=== PATIENT | male | born 1990 ===

== ENCOUNTER 2018-01-11 17:39 | Emergency (ER) | payer BC ==
[2018-01-11] MEDS ORDERED: Tetan/Diph/Pertus SYR(Tdap)* 0.5 ML SYR(BOOSTRIX) use SYR IM ONE (18:09)
[2018-01-11] MEDS ORDERED: Cephalexin CAP* 500 MG PO ONE (18:09)
--- NOTE | 2018-01-11 18:09 | UC ---
Hand/Wrist HPI - HPI Summary HPI Summary: The patient is a 27-year-old male who sustained a puncture wound to his left distal forearm today about noon with a waldemar nail while he was demolishing a barn. He is unsure of his last tetanus shot. He is left-handed. About 2 hours after the incident he started having some swelling around the puncture site. Now it hurts when he makes a fist. It is no redness. He has no fever. There is no numbness or tingling of his hand. - History Of Current Complaint Chief Complaint: UCUpperExtremity Stated Complaint: PUNCTURE WOUND Time Seen by Provider: 01/11/18 18:00 Hx Obtained From: Patient Onset/Duration: Sudden Onset, Lasting Hours Severity Initially: Moderate Severity Currently: Mild Pain Intensity: 4 Pain Scale Used: 0-10 Numeric Character Of Pain: Dull, Aching Aggravating Factor(s): Movement, Lifting Alleviating Factor(s): Rest Associated Signs And Symptoms: Positive: Swelling Related History: Dominant Hand Left Hands: 1 - PW with surrounding mild swelling - Allergies/Home Medications Allergies/Adverse Reactions: Allergies Allergy/AdvReac Type Severity Reaction Status Date / Time No Known Allergies Allergy Verified 01/11/18 17:50 PMH/Surg Hx/FS Hx/Imm Hx Previously Healthy: Yes - Surgical History Surgical History: None - Family History Known Family History: Positive: Hypertension - Social History Alcohol Use: None Substance Use Type: None Smoking Status (MU): Never Smoked Tobacco - Immunization History Most Recent Tetanus Shot: unknown Review of Systems Constitutional: Negative Skin: Negative Eyes: Negative ENT: Negative Respiratory: Negative Cardiovascular: Negative Gastrointestinal: Negative Genitourinary: Negative Motor: Negative Neurovascular: Negative Musculoskeletal: Myalgia Neurological: Negative Psychological: Negative Is Patient Immunocompromised?: No All Other Systems Reviewed And Are Negative: Yes Physical Exam Triage Information Reviewed: Yes Appearance: Well-Appearing, No Pain Distress, Well-Nourished Vital Signs: Initial Vital Signs Temp 98.7 F 01/11/18 17:46 Pulse 61 01/11/18 17:46 Resp 18 01/11/18 17:46 BP 116/81 01/11/18 17:46 Pulse Ox 100 01/11/18 17:46 Vital Signs Reviewed: Yes Eyes: Positive: Conjunctiva Clear ENT: Positive: Hearing grossly normal. Negative: Nasal congestion, Nasal drainage, Trismus, Muffled voice, Hoarse voice Neck: Positive: Supple, Nontender, No Lymphadenopathy Respiratory: Positive: Lungs clear, Normal breath sounds, No respiratory distress, No accessory muscle use Cardiovascular: Positive: RRR, No Murmur Musculoskeletal: Positive: Edema @ - around PW site Neurological: Positive: Alert Psychological Exam: Normal Skin Exam: Other - PW Diagnostics - Radiology No standard instances Xray Interpretation: Positive (See Comments) - Possible metallic foreign bodies overlying the palmar aspect subcutaneous tissue overlying the distal left radius and uln Radiology Interpretation Completed By: Radiologist Hand/Wrist Course/Dx - Course Course Of Treatment: patient informed of XR results. aware of need to follow up should his symptoms worsen - Differential Dx/Diagnosis Provider Diagnoses: left forearm puncture wound Discharge - Sign-Out/Discharge Documenting (check all that apply): Discharge/Admit/Transfer - Discharge Plan Condition: Stable Disposition: HOME Prescriptions: Cephalexin CAP* [Keflex CAP*] 500 mg PO QID #28 cap Patient Education Materials: Puncture Wound (ED) Referrals: Toro Motley NP [Nurse Practitioner] - 3 Days Additional Instructions: you had a tetanus shot today warm soapy soaks 2x day until better rest elevate elevate elevate TO ER FOR NEW OR WORSENING SYMPTOMS increased pain redness/discharge/red streaks/fever numb hand see your provider Sunday for recheck - Billing Disposition and Condition Condition: STABLE Disposition: Home
--- NOTE | 2018-01-11 18:38 | RAD ---
INDICATION: Left upper extremity nail punctures and lacerations TECHNIQUE: 2 views of the left forearm were obtained. FINDINGS: In the subcutaneous tissue overlying the palmar aspect distal left radius and ulna there are several tiny punctate densities. The bones are normal alignment. Joint spaces appear maintained. No fracture is seen. IMPRESSION: Possible metallic foreign bodies overlying the palmar aspect subcutaneous tissue overlying the distal left radius and ulna. Please correlate to site of the patient's injury.
== END 2018-01-11 19:18 | disposition home or self-care (01) ==
LOC: UCEAST 17:39
DX: S51.832A Puncture wound without foreign body of left forearm, initial encounter (principal); W45.0XXA Nail entering through skin, initial encounter; Y93.89 Activity, other specified; Y92.9 Unspecified place or not applicable
CPT/HCPCS: 90715; 99202; A9270-GY; G0463